=== PATIENT | female | born 1965 | race Caucasian/White ===

== ENCOUNTER 2023-05-14 09:52 | Outpatient (CLI) | payer OTHER, SELFPAY ==
--- NOTE | ~2023-05-14 | XR_ITS ---
EXAMINATION: XR lumbar spine 2-3V DATE: 05/14/2023 10:20 INDICATION: Lumbar radiculopathy TECHNIQUE: Anteroposterior and lateral views of the lumbar spine, and cone-down lateral view of the l umbosacral junction were obtained. COMPARISON: 12/30/2022 FINDINGS: There are 4 mm of retrolisthesis of L5 on S1. There is moderate loss of intervertebral disc space height at L1-2 and L5-S1. The vertebral body heights are maintained. There is no fracture. Sma ll degenerative osteophytes project from the anterior endplates of multiple vertebral bodies. IMPRESSION: 1. Moderate lumbar spondylosis without acute findings or significant interval change. Reviewed, dictated and finalized at location F. IMPRESSION: 1. Moderate lumbar spondylosis without acute findings or significant interval trina molina
--- NOTE | ~2023-05-14 | XR_ITS ---
EXAMINATION:XR_[id number] DATE: 05/14/2023 10:20 INDICATION: Neck pain TECHNIQUE: AP, lateral, lateral swimmers and odontoid views of the cervical spine are provided. COMPARISON: None FINDINGS: There are 2 mm of retrolisthesis of C5 on C6. The odontoid process is intact. No fracture i s identified. The vertebral body heights are maintained. There is moderate loss of intervertebral dis c space height at C5-6. Small degenerative osteophytes project from the anterior endplates of multipl e vertebral bodies. 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 Prevertebral soft tissues are normal. IMPRESSION: 1. Moderate cervical spondylosis without acute findings. Reviewed, dictated and finalized at location F.
--- NOTE | ~2023-05-14 | XR_ITS ---
EXAMINATION: XR thoracic spine 3V DATE: 05/14/2023 10:20 INDICATION: Thoracic radiculopathy TECHNIQUE: AP, lateral and lateral swimmer's views of the thoracic spine were obtained. COMPARISON: 12/30/2022 FINDINGS: There are 7 degrees of thoracic dextrocurvature. Bone alignment is normal. There is unchang ed mild anterior wedging of a midthoracic vertebral body. No acute fracture is identified. There is m ild loss of intervertebral disc space height at multiple levels in the thoracic spine. IMPRESSION: 1. Mild thoracic spondylosis with chronic and mild mid thoracic compression fracture. Reviewed, dictated and finalized at location F. IMPRESSION: 1. Mild thoracic spondylosis with chronic and mild mid thoracic compression fra cture.
== END 2023-05-14 09:53 | disposition home or self-care (01) ==
LOC: ANHIMG 09:56
PROVIDERS: PCP Nurse Practitioner Family; Visit Provider Pain Medicine Interventional Pain Medicine
DX: M54.17 Radiculopathy, lumbosacral region (principal); M54.14 Radiculopathy, thoracic region; M54.12 Radiculopathy, cervical region; M43.04 Spondylolysis, thoracic region; S22.009A Unspecified fracture of unspecified thoracic vertebra, initial encounter for closed fracture; M43.02 Spondylolysis, cervical region; M43.06 Spondylolysis, lumbar region
CPT/HCPCS: 72040; 72072; 72100